=== PATIENT | male | born 1970 | race Caucasian/White ===

== ENCOUNTER 2017-09-15 09:27 | Emergency (ER) | payer BC, MEDICAID, OTHER ==
[~2017-09-15] VITALS: Ht 177.8 cm; Wt 114.0 kg
[2017-09-15 09:54] LABS: BASOPHILS # (AUTO) 0.09 x10^3/uL (0-0.1); BASOPHILS % (AUTO) 1 % (0-1); EOSINOPHILS # (AUTO) 0.65 x10^3/uL (0-0.4); EOSINOPHILS % (AUTO) 7 % (1-7); LYMPHOCYTES # (AUTO) 2.34 x10^3/uL (1-3.4); LYMPHOCYTES % (AUTO) 26 % (22-44); MD NO; MEAN CORPUSCULAR HEMOGLOBIN 29.6 pg (27.5-34.5); MEAN CORPUSCULAR HGB CONC 33.6 g/dL (33.2-36.2); MEAN CORPUSCULAR VOLUME 88.3 fL (81-97); MEAN PLATELET VOLUME 7.9 fL (7.4-10.4); MONOCYTES # (AUTO) 0.47 x10^3/uL (0.2-0.8); MONOCYTES % (AUTO) 5 % (2-9); NEUTROPHILS # (AUTO) 5.33 x10^3/uL (1.8-6.8); NEUTROPHILS % (AUTO) 60 % (42-75); PLATELET COUNT 211 x10^3/uL (130-400); RED BLOOD COUNT 4.99 x10^6/uL (4.38-5.82); RED CELL DISTRIBUTION WIDTH 14.1 % (9.4-14.8)
[2017-09-15 10:05] LABS: ALBUMIN 3.5 g/dL (3.4-5.0); CALCIUM 8.8 mg/dL (8.5-10.1)
[2017-09-15 10:11] LABS: ALANINE AMINOTRANSFERASE 24 U/L (12-78); ALKALINE PHOSPHATASE 78 U/L (45-117); ANION GAP 5 mmol/L (5-15); BILIRUBIN,TOTAL 0.4 mg/dL (0.2-1.0); CHLORIDE 111 mmol/L (98-107); CREATININE 0.69 mg/dL (0.7-1.3); TOTAL PROTEIN 6.3 g/dL (6.4-8.2)
[2017-09-15] MEDS ORDERED: IPRA3AMP INH (10:12)
[2017-09-15] MEDS ORDERED: ALBU0.63 NEB (10:12)
[2017-09-15] MEDS ORDERED: ERGO500017 PO (10:12)
[2017-09-15] MEDS ORDERED: IBUP-1223 PO (10:12)
[2017-09-15] MEDS ORDERED: BACL20TA PO (10:12)
[2017-09-15 11:20] VITALS: BP 112/67
== END 2017-09-15 11:22 | disposition home or self-care (01) ==
LOC: ED 10:30
DX: M79.662 Pain in left lower leg (principal); R60.9 Edema, unspecified; J44.9 Chronic obstructive pulmonary disease, unspecified
CPT/HCPCS: 36415; 71045; 80053; 83880; 85025; 93005; 93970; 99285

== ENCOUNTER 2018-05-22 12:38 | Inpatient (IN) | payer MEDICAID ==
[~2018-05-22] VITALS: Ht 177.8 cm; Wt 114.5 kg
[~2018-05-22 12:38] MED LIST: ALBU0.63 NEB; BACL20TA PO; ERGO500017 PO; IBUP-1223 PO; IPRA3AMP30 INH
[2018-05-22 13:29] LABS: RAPID INFLUENZA A POSITIVE (Negative); RAPID INFLUENZA B Negative (Negative)
--- NOTE | 2018-05-22 13:44 | NUR ---
PT AMBULATORY TO ROOM 23 W/ C/O SORE THROAT AND CONGESTION STARTED THURSDAY. PT STATES HE STARTED FEELING WORSE W/ C/O SOB. PT HAS HX COPD AND EMPHYSEMA. PT DENIES CP. PT RESTING ON GURNEY. NADN. VSS. WARM BLANKET PROVIDED. REPORT TO CATHERINE REYES.
--- NOTE | 2018-05-22 13:50 | NUR ---
REPORT RECEIVED, CARE ASSUMED
[2018-05-22] MEDS: ALBUTEROL/IPRATROPIUM 2.5MG/0.5MG, 3 ML NPPB SCH ×3 (13:55→22:50)
[2018-05-22] MEDS ORDERED: ALBUTEROL/IPRATROPIUM 2.5MG/0.5MG, 3 ML ONE (13:56)
[2018-05-22] MEDS ORDERED: AZITHROMYCIN 250 MG TABLET PO ONE (14:00)
[2018-05-22] MEDS ORDERED: AZITHROMYCIN 250 MG TABLET ONE (14:15)
[2018-05-22 14:21] LABS: BASOPHILS # (AUTO) 0.05 x10^3/uL (0-0.1); BASOPHILS % (AUTO) 1 % (0-1); EOSINOPHILS # (AUTO) 0.01 x10^3/uL (0-0.4); EOSINOPHILS % (AUTO) 0 % (1-7); LYMPHOCYTES # (AUTO) 1.13 x10^3/uL (1-3.4); LYMPHOCYTES % (AUTO) 15 % (22-44); MD NO; MEAN CORPUSCULAR HEMOGLOBIN 29.5 pg (27.5-34.5); MEAN CORPUSCULAR HGB CONC 34.5 g/dL (33.2-36.2); MEAN CORPUSCULAR VOLUME 85.6 fL (81-97); MEAN PLATELET VOLUME 7.7 fL (7.4-10.4); MONOCYTES # (AUTO) 0.67 x10^3/uL (0.2-0.8); MONOCYTES % (AUTO) 9 % (2-9); NEUTROPHILS # (AUTO) 5.92 x10^3/uL (1.8-6.8); NEUTROPHILS % (AUTO) 76 % (42-75); PLATELET COUNT 186 x10^3/uL (130-400); RED BLOOD COUNT 5.25 x10^6/uL (4.38-5.82); RED CELL DISTRIBUTION WIDTH 14.6 % (9.4-14.8)
--- NOTE | 2018-05-22 14:21 | NUR ---
PT SITTING UP ON SIDE OF GURNEY, PT MEDICATED ORDERED. STATES "NO CHANGES" AFTER RT TX. ST PER MONITOR, AUTO BP AND PULSE OX IN PLACE.
[2018-05-22 14:29] LABS: ALBUMIN 3.8 g/dL (3.4-5.0); ANION GAP 7 mmol/L (5-15); CALCIUM 9.1 mg/dL (8.5-10.1); CHLORIDE 106 mmol/L (98-107)
[2018-05-22 14:34] LABS: CREATININE 0.75 mg/dL (0.7-1.3); TROPONIN I < 0.015 ng/mL (0.000-0.045)
--- NOTE | 2018-05-22 15:46 | NUR ---
PT REMOVING BP CUFF. PTS MOTHER AT BEDSIDE. PT PROVIDED WITH BLANKET. WAITING FOR FURTHER DISPOSITON.
--- NOTE | 2018-05-22 16:26 | NUR ---
RT AT BEDSIDE FOR TREATMENT. ST PER MONITOR, AUTO BP AND PULSE OX IN PLACE. PT TAKING PO FLUIDS AT TIMES.
[2018-05-22] MEDS ORDERED: GABA300C10 PO (16:31)
--- NOTE | 2018-05-22 16:50 | NUR ---
DISCUSSED WITH DR CORTES PT REQUEST FOR FOOD. MEAL TRAY ORDERED. PT PROVIDED WITH JUICE. NO OTHER NEEDS EXPRESSED AT THIS TIME.
[2018-05-22] MEDS ORDERED: DOCUSATE 100 MG CAPSULE PO PRN (17:30)
[2018-05-22] MEDS ORDERED: AZITHROMYCIN 500 MG in SODIUM CHLORIDE 0.9% 250 ML IV SCH (17:30)
[2018-05-22] MEDS ORDERED: LABETALOL 20 MG/4 ML IVPush PRN (17:30)
[2018-05-22] MEDS ORDERED: ENALAPRILAT 1.25 MG/ML, 2ML IVPush PRN (17:30)
[2018-05-22] MEDS: ENOXAPARIN 40 MG/0.4 ML SQ SCH (17:30)
[2018-05-22] MEDS ORDERED: ONDANSETRON ODT 4 MG PO PRN (17:30)
[2018-05-22] MEDS ORDERED: BISACODYL 10 MG SUPP PR PRN (17:30)
[2018-05-22] MEDS ORDERED: BACLOFEN 10 MG TABLET PO PRN (17:30)
[2018-05-22] MEDS ORDERED: ONDANSETRON 2MG/ML, 2ML IVPush PRN (17:30)
[2018-05-22] MEDS ORDERED: POLYETHYLENE GLYCOL 17 GM PACKET PO PRN (17:30)
[2018-05-22] MEDS ORDERED: ACETAMINOPHEN 325 MG TABLET PO PRN (17:30)
--- NOTE | 2018-05-22 18:06 | NUR ---
CALL TO Lashae MILAN APRN, DISCUSSED PT RECEIVED ZITHROMAX PO EARLIER, IV DOSE TO BE HELD. PT GIVEN MEAL TRAY, AWARE OF ROOM ASSIGNMENT. PT CONT ST PER MONITOR. REPORT CALLED TO FELICIANO ALEXANDER, POC DISCUSSED.
--- NOTE | 2018-05-22 18:09 | NUR ---
LATE ENTRY FOR 1415, DISCUSSED WITH MEDINA ORTIZ BLOOD CULTURES PRIOR TO ABX ADMIN. NO BLOOD CULTURES NEEDED AT THIS TIME.
[2018-05-22 18:55] VITALS: BP 106/68
[2018-05-22] MEDS: SODIUM CHLORIDE 0.9% 1,000 ML IV SCH (20:05)
[2018-05-22] MEDS: NICOTINE 14MG/24 HR PATCH.TD24 TD SCH (20:05)
[2018-05-22] MEDS: GUAIFENESIN/DM 200-20MG, 10ML UDC PO SCH (20:06)
[2018-05-22] MEDS: GABAPENTIN 300 MG CAPSULE PO SCH (20:06)
[2018-05-22] MEDS: methylPREDNISolone SOD SUCC 125 MG/2 ML IVPush SCH (20:06)
[2018-05-22] MEDS: KETOROLAC 30 MG/1 ML IV PRN (20:18)
[2018-05-23 00:57] VITALS: BP 109/67
[2018-05-23] MEDS: methylPREDNISolone SOD SUCC 125 MG/2 ML IVPush SCH ×4 (02:10→21:10)
[2018-05-23] MEDS: GUAIFENESIN/DM 200-20MG, 10ML UDC PO SCH ×4 (02:10→21:10)
[2018-05-23] MEDS: SODIUM CHLORIDE 0.9% 1,000 ML IV SCH (03:35)
[2018-05-23] MEDS: KETOROLAC 30 MG/1 ML IV PRN ×2 (03:38→21:10)
[2018-05-23 05:53] LABS: BASOPHILS # (AUTO) 0.02 x10^3/uL (0-0.1); BASOPHILS % (AUTO) 0 % (0-1); EOSINOPHILS % (AUTO) 0 % (1-7); LYMPHOCYTES # (AUTO) 0.68 x10^3/uL (1-3.4); LYMPHOCYTES % (AUTO) 9 % (22-44); MD NO; MEAN CORPUSCULAR HEMOGLOBIN 29.1 pg (27.5-34.5); MEAN CORPUSCULAR HGB CONC 33.7 g/dL (33.2-36.2); MEAN CORPUSCULAR VOLUME 86.2 fL (81-97); MEAN PLATELET VOLUME 7.8 fL (7.4-10.4); MONOCYTES # (AUTO) 0.16 x10^3/uL (0.2-0.8); MONOCYTES % (AUTO) 2 % (2-9); NEUTROPHILS # (AUTO) 6.85 x10^3/uL (1.8-6.8); NEUTROPHILS % (AUTO) 89 % (42-75); PLATELET COUNT 201 x10^3/uL (130-400); RED BLOOD COUNT 5.26 x10^6/uL (4.38-5.82); RED CELL DISTRIBUTION WIDTH 14.6 % (9.4-14.8)
[2018-05-23 05:58] LABS: ANION GAP 5 mmol/L (5-15); CALCIUM 9.1 mg/dL (8.5-10.1); CHLORIDE 109 mmol/L (98-107); CREATININE 0.82 mg/dL (0.7-1.3)
[2018-05-23] MEDS: ALBUTEROL/IPRATROPIUM 2.5MG/0.5MG, 3 ML NPPB SCH ×4 (07:38→20:38)
[2018-05-23 07:54] VITALS: BP 111/74
[2018-05-23] MEDS ORDERED: AZITHROMYCIN 250 MG TABLET PO SCH (09:00)
[2018-05-23] MEDS: GABAPENTIN 300 MG CAPSULE PO SCH ×2 (09:35→21:10)
[2018-05-23] MEDS ORDERED: OMNIPAQUE 350 MG/ML, 100ML BOTTLE ONE (12:48)
[2018-05-23 14:28] VITALS: BP 122/78
[2018-05-23] MEDS ORDERED: BENZOCAINE 20% SPRAY 0.5ML TP PRN ×2 (15:30→17:00)
[2018-05-23] MEDS ORDERED: ERGOCALCIFEROL 50,000 UNIT CAPSULE PO SCH (17:30)
[2018-05-23] MEDS: ENOXAPARIN 40 MG/0.4 ML SQ SCH (17:30)
[2018-05-23] MEDS: NICOTINE 14MG/24 HR PATCH.TD24 TD SCH (17:34)
[2018-05-23 18:35] VITALS: BP 103/68
[2018-05-24 01:20] VITALS: BP 116/77
[2018-05-24] MEDS: GUAIFENESIN/DM 200-20MG, 10ML UDC PO SCH (03:00)
[2018-05-24] MEDS: methylPREDNISolone SOD SUCC 125 MG/2 ML IVPush SCH (03:00)
[2018-05-24] MEDS: ALBUTEROL/IPRATROPIUM 2.5MG/0.5MG, 3 ML NPPB SCH (06:00)
[2018-05-24] MEDS ORDERED: LEVOFLOXACIN/PMX 750MG/150ML 150 ML IV SCH (07:30)
[2018-05-24 07:34] VITALS: BP 120/79
== END 2018-05-24 08:39 | disposition left against medical advice (07) | DRG 193 ==
LOC: ED 15:16 → 3NE 18:54
PROVIDERS: ADMIT Hospitalist; ATTEND Hospitalist
DX: J10.00 Influenza due to other identified influenza virus with unspecified type of pneumonia (principal); J96.01 Acute respiratory failure with hypoxia; J44.0 Chronic obstructive pulmonary disease with (acute) lower respiratory infection; J44.1 Chronic obstructive pulmonary disease with (acute) exacerbation; Z86.74 Personal history of sudden cardiac arrest; Z82.5 Family history of asthma and other chronic lower respiratory diseases; Z80.8 Family history of malignant neoplasm of other organs or systems; R79.1 Abnormal coagulation profile; G89.29 Other chronic pain; G62.9 Polyneuropathy, unspecified; F17.200 Nicotine dependence, unspecified, uncomplicated; E55.9 Vitamin D deficiency, unspecified; E66.9 Obesity, unspecified; Z53.21 Procedure and treatment not carried out due to patient leaving prior to being seen by health care provider; Z68.36 Body mass index [BMI] 36.0-36.9, adult; Z91.030 Bee allergy status; Z88.0 Allergy status to penicillin; Z91.018 Allergy to other foods
CPT/HCPCS: 36415; 84145; 87400; 96360; 99291; J7620; 71046; 71275; 80048; 82040; 84484; 85025; 85379; 93005; 94640; G0378; J1885; Q9967; J2930; J7030; J7512

== ENCOUNTER 2020-06-09 20:26 | Emergency (ER) | payer MEDICAID ==
[~2020-06-09] VITALS: Ht 177.8 cm; Wt 129.0 kg
[~2020-06-09 20:26] MED LIST changes: +GABA300C10 PO
[2020-06-09] MEDS ORDERED: ALBUTEROL/IPRATROPIUM 2.5MG/0.5MG, 3 ML ONE (21:23)
[2020-06-09] MEDS ORDERED: ALBUTEROL/IPRATROPIUM 2.5MG/0.5MG, 3 ML NPPB ONE (21:30)
--- NOTE | 2020-06-09 21:30 | NUR ---
PT TO ROOM ON ARRIVAL WITH RESP DISTRESS. PT STATES HE HAS HX OF COPD. PT ON O2 NC AT HOME 3 LPM. TO BEDSIDE TO [facility] PT.
[2020-06-09 21:40] LABS: BASOPHILS % (AUTO) 3 % (0-1); EOSINOPHILS % (AUTO) 5 % (1-7); LYMPHOCYTES % (AUTO) 27 % (22-44); MEAN CORPUSCULAR HEMOGLOBIN 28.5 pg (27.5-34.5); MEAN CORPUSCULAR HGB CONC 33.6 g/dL (33.2-36.2); MEAN PLATELET VOLUME 7.5 fL (7.4-10.4); MONOCYTES % (AUTO) 9 % (2-9); NEUTROPHILS % (AUTO) 57 % (42-75); PLATELET COUNT 300 x10^3/uL (130-400); RED BLOOD COUNT 5.02 x10^6/uL (4.38-5.82); RED CELL DISTRIBUTION WIDTH 14.4 % (9.4-14.8)
[2020-06-09 21:44] LABS: ALBUMIN 3.3 g/dL (3.4-5.0); CALCIUM 9.5 mg/dL (8.5-10.1); CREATININE 0.69 mg/dL (0.7-1.3)
[2020-06-09 21:47] LABS: MD NO
[2020-06-09 21:48] LABS: TROPONIN I < 0.015 ng/mL (0.000-0.045)
[2020-06-09 21:56] LABS: ANION GAP 4 mmol/L (5-15)
[2020-06-09 21:57] LABS: CHLORIDE 107 mmol/L (98-107)
--- NOTE | 2020-06-09 21:58 | NUR ---
MEDS GIVEN PO, AND DUO NEB STARTED. PT TOLERATING WELL AND IN POSITION OF COMFORT, AND CXRY TAKEN.
--- NOTE | 2020-06-09 22:10 | NUR ---
RENETTA DONE, AND PT STATES HE HAS SOME IMPROVEMENT BUT STILL HAS MILD SHORTNESS OF BREATH WELL. REMAINS ON CR MONITOR, WITH CALL LIGHT IN REACH.
[2020-06-09 22:16] VITALS: BP 110/80
[2020-06-09] MEDS ORDERED: AZITHROMYCIN 500 MG TABLET PO ONE (22:30)
[2020-06-09] MEDS ORDERED: AZITHROMYCIN 500 MG TABLET ONE (22:40)
== END 2020-06-09 23:21 | disposition home or self-care (01) ==
LOC: ED 22:49
DX: J44.1 Chronic obstructive pulmonary disease with (acute) exacerbation (principal); J18.9 Pneumonia, unspecified organism; R50.9 Fever, unspecified; R05 Cough; R06.02 Shortness of breath; R06.00 Dyspnea, unspecified; Z87.891 Personal history of nicotine dependence
CPT/HCPCS: 36415; 71045; 80048; 82040; 83880; 84484; 85025; 93005; 94640; 99285; J7512

== ENCOUNTER 2020-11-01 21:03 | Emergency (ER) | payer MEDICAID ==
[~2020-11-01] VITALS: Ht 177.8 cm; Wt 124.7 kg
[2020-11-01] MEDS ORDERED: SODIUM CHLORIDE 0.9% 1,000ML IVBOLUS ONE (22:00)
[2020-11-01] MEDS ORDERED: SODIUM CHLORIDE FLUSH 10ML SYR IVF ONE (22:00)
--- NOTE | 2020-11-01 22:18 | NUR ---
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
[2020-11-01 22:20] LABS: BASOPHILS % (AUTO) 1 % (0-1); EOSINOPHILS % (AUTO) 3 % (1-7); LYMPHOCYTES % (AUTO) 21 % (22-44); MEAN CORPUSCULAR HEMOGLOBIN 29.4 pg (27.5-34.5); MEAN CORPUSCULAR HGB CONC 34.1 g/dL (33.2-36.2); MEAN PLATELET VOLUME 7.9 fL (7.4-10.4); MONOCYTES % (AUTO) 6 % (2-9); NEUTROPHILS % (AUTO) 69 % (42-75); PLATELET COUNT 229 x10^3/uL (130-400); RED BLOOD COUNT 5.53 x10^6/uL (4.38-5.82); RED CELL DISTRIBUTION WIDTH 14.2 % (9.4-14.8)
--- NOTE | 2020-11-01 22:28 | NUR ---
PT A&OX4, HAS HAD LABS DRAWN AND XRAY DONE. PT CHECKED IN, C/O PAIN TO LEFT SIDE JAW. SAYS UPPER LEFT SIDE TEETH HURTING, AND PT WAS GIVEN ANTIBIOTICS ON THURSDAY AND HAS BEEN TAKING THEM, BUT THE SWELLING GOT WORST TODAY, AND FEELS WORST, PER THE PT.
[2020-11-01 22:29] LABS: ALBUMIN 3.7 g/dL (3.4-5.0); ANION GAP 5 mmol/L (5-15); CALCIUM 9.5 mg/dL (8.5-10.1); CHLORIDE 109 mmol/L (98-107); CREATININE 0.85 mg/dL (0.7-1.3)
--- NOTE | 2020-11-01 22:55 | NUR ---
PT MOVED TO ROOM 22, AND REPORT TO JOAQUIN ALEXANDER. PT AMBULATING, NO ACUTE DISTRESS.
--- NOTE | 2020-11-01 23:20 | NUR ---
REPORT GIVEN FROM CATHERINE NUÑEZ. PT WENT TO CT
--- NOTE | 2020-11-01 23:27 | NUR ---
Report from Simona blas
[2020-11-01] MEDS ORDERED: OMNIPAQUE 350 MG/ML, 75ML BOTTLE ONE (23:32)
[2020-11-02] MEDS ORDERED: morphine SULFATE 10 MG/ML, 1ML IVPush ONE
[2020-11-02] MEDS ORDERED: CEFTRIAXONE 1,000 MG in DEXTROSE 5% 50 ML IVPB ONE
[2020-11-02] MEDS ORDERED: MORPHINE SULFATE 4 MG/ML, 1ML ONE (00:11)
[2020-11-02] MEDS ORDERED: LIDOCAINE-MPF 2% ,5ML ONE (00:11)
[2020-11-02] MEDS ORDERED: BUPIVACAINE 0.25% ONE (00:18)
[2020-11-02] MEDS ORDERED: LIDOCAINE 2%, 20ML INFIL ONE (00:30)
[2020-11-02] MEDS ORDERED: BUPIVACAINE/PF 0.5% INFIL ONE (00:30)
--- NOTE | 2020-11-02 02:00 | NUR ---
pt reports pain is still 11/16. armida noel aware, will re-asses pt
[2020-11-02 02:21] VITALS: BP 146/96
--- NOTE | 2020-11-02 02:21 | NUR ---
Pt reports pain is better now, at 5/10. Pt given discharge instructions and they have confirmed that they understand the instructions. Patient ambulatory with steady gait. NAD, all questions answered appropriately, denies additional needs at this time. No personal belongings left in room after discharge.
== END 2020-11-02 02:23 | disposition home or self-care (01) ==
LOC: ED 21:33
DX: K02.9 Dental caries, unspecified (principal); J44.9 Chronic obstructive pulmonary disease, unspecified; K08.89 Other specified disorders of teeth and supporting structures; Z87.891 Personal history of nicotine dependence
CPT/HCPCS: 36415; 64400; 70487; 80048; 82040; 85025; 96361; 96365; 96375; 99285; J0696; J2270; J7030; Q9967